=== PATIENT | female | born 1960 | race African-American/Black ===

== ENCOUNTER 2018-06-03 14:29 | Emergency (ER) | payer MEDICAID ==
[~2018-06-03] VITALS: Ht 160 cm; Wt 82.0 kg
[2018-06-03] MEDS ORDERED: IBUPROFEN 600MG TABLET PO ONE (16:30)
[2018-06-03 18:41] VITALS: BP 170/32
== END 2018-06-03 18:44 | disposition home or self-care (01) ==
LOC: ER 14:29
DX: S86.811D Strain of other muscle(s) and tendon(s) at lower leg level, right leg, subsequent encounter (principal); W19.XXXD Unspecified fall, subsequent encounter; I10 Essential (primary) hypertension; Z87.81 Personal history of (healed) traumatic fracture; Z86.73 Personal history of transient ischemic attack (TIA), and cerebral infarction without residual deficits
CPT/HCPCS: 93971; 99284